=== PATIENT | female | born 1980 | race Caucasian/White ===

== ENCOUNTER → 2016-10-19 | Outpatient (CLI) | payer BC, OTHER ==
[~2016-10-19] MED LIST: DEPAKOTE PO; DEXILANT30 MG PO; FLEXERIL10 MG PO; JANUVIA25 MG PO; METFORMIN HCL1000 M2; NO MEDICATIONS; SEROQUEL PO; SYNTHROID PO; VOLTAREN75 MG PO; ZOCOR PO
--- NOTE | ~2016-10-19 | CR212 ---
[facility]. [facility] A Service of [facility] RADIOLOGY TEXT RESULTS PATIENT: MASOOD SALVADOR LOCATION: [facility] : [birth year] UNIT #: [id number] AGE: [address]: Desmond Vega MD SEX: F ORDER DR: [id number] [address] [address] [id number] O MR#: [id number] Acc #: [id number] NAME: MASOOD SALVADOR : 1980 SEX: F STUDY DATE/TIME: 10/19/2016 12:39 UNIT: [facility] ROOM: STUDY DESCRIPTION: CR Ribs Unilateral 2 View Lt Attending Physician: Desmond Vega M.D. Referring Physician: Desmond Vega M.D. Ordering Physician: Desmond Vega M.D. Primary Care Physician: Dale Covington M.D. MEDICAL IMAGING REPORT This report is preliminary unless electronic signature is present. EXAM Left rib series 10/19/2016 INDICATIONS 36-year-old female who has pain after fall last night, fell over a toy on the steps, hit the posterior ribs on the steps, bilateral rib pain. 4 views left ribs. COMPARISON STUDIES No comparisons. FINDINGS No acute rib fracture, pleural effusion or pneumothorax. Visualized osseous structures intact. Lungs clear. IMPRESSION Negative. Dictated by... Wilfredo Orozco M.D. THIS IS AN ELECTRONICALLY VERIFIED REPORT Wilfredo Orozco M.D. at 10/19/2016 7:17 PM Vic TD: 10/19/2016 17:55 JOB #: [id number] MEDICAL IMAGING REPORT Page 1 of 1
--- NOTE | ~2016-10-19 | CR213 ---
[facility]. [facility] A Service of [facility] & [facility] RADIOLOGY TEXT RESULTS PATIENT: MASOOD SALVADOR LOCATION: [facility] : 80 UNIT #: [id number] AGE: [address]: Desmond Vega MD SEX: F ORDER DR: [id number] [address] [address] [id number] O MR#: [id number] Acc #: [id number] NAME: MASOOD SALVADOR : 1980 SEX: F STUDY DATE/TIME: 10/19/2016 12:39 UNIT: [facility] ROOM: STUDY DESCRIPTION: CR Ribs Unilateral 2 View Rt Attending Physician: Desmond Vega M.D. Referring Physician: Desmond Vega M.D. Ordering Physician: Wilfredo Reina M.D. Primary Care Physician: Dale Covington M.D. MEDICAL IMAGING REPORT This report is preliminary unless electronic signature is present. EXAM Right rib series 10/19/2016 INDICATIONS Pain after fall last night, fell over a toy on the steps, hit the posterior ribs on the steps. Bilateral rib pain. 4 views right ribs. COMPARISON STUDIES No comparisons. FINDINGS No acute fracture. No pleural effusion. No pneumothorax. Lungs clear. IMPRESSION Negative. Dictated by... Wilfredo Orozco M.D. THIS IS AN ELECTRONICALLY VERIFIED REPORT Wilfredo Orozco M.D. at 10/27/2016 5:40 PM Vic TD: 10/19/2016 17:58 JOB #: [id number] MEDICAL IMAGING REPORT Page 1 of 1
== END | disposition home or self-care (01) ==
LOC: SRAD 12:25
DX: R07.81 Pleurodynia (principal); S20.219A Contusion of unspecified front wall of thorax, initial encounter
CPT/HCPCS: 71100

== ENCOUNTER 2017-02-28 13:28 | Emergency (ER) | payer OTHER ==
--- NOTE | ~2017-02-28 | EKG ---
PATIENT: MASOOD SALVADOR UNIT #: [id number] Ventricular Rate: 105 BPM Atrial Rate: 105 BPM P-R Interval: 130 ms QRS Duration: 78 ms Q-T Interval: 330 ms QTC Calculation(Bezet): 436 ms P Reinholds: 36 degrees Calculated R Reinholds: 43 degrees Calculated T Reinholds: 28 degrees Diagnosis Line: Sinus tachycardia Diagnosis Line: Otherwise normal ECG Diagnosis Line: When compared with ECG of 01-JAN-2014 14:28, Diagnosis Line: T wave amplitude has increased in Anterior leads Diagnosis Line: Confirmed by MELONIE COOPER MD ([id number]) on Diagnosis Line: 03/03/2017 10:41:11 AM INTERPRETING MD: ALLISON FINE
[~2017-02-28 13:28] MED LIST changes: -DEPAKOTE PO; -DEXILANT30 MG PO; -JANUVIA25 MG PO; -SEROQUEL PO
[2017-02-28] MEDS ORDERED: SEROQUEL PO (13:40)
[2017-02-28] MEDS ORDERED: DEPAKOTE PO (13:40)
[2017-02-28] MEDS ORDERED: DEXILANT30 MG PO (13:40)
[2017-02-28] MEDS ORDERED: JANUVIA25 MG PO (13:41)
== END 2017-02-28 15:30 | disposition home or self-care (01) ==
LOC: SED 13:28
DX: F41.9 Anxiety disorder, unspecified (principal); K21.9 Gastro-esophageal reflux disease without esophagitis; F31.9 Bipolar disorder, unspecified; Z91.040 Latex allergy status; Z79.899 Other long term (current) drug therapy
CPT/HCPCS: 93005; 99285

== ENCOUNTER → 2017-03-02 | Outpatient (CLI) | payer OTHER ==
[~2017-03-02] MED LIST changes: +DEPAKOTE PO; +DEXILANT30 MG PO; +JANUVIA25 MG PO; +SEROQUEL PO
--- NOTE | ~2017-03-02 | CR181 ---
[facility]. [facility] A Service of [facility] & [facility] RADIOLOGY TEXT RESULTS PATIENT: MASOOD SALVADOR LOCATION: [facility] : 80 UNIT #: [id number] AGE: [address]: Desmond Vega MD SEX: F ORDER DR: [id number] [address] [address] [id number] O MR#: [id number] Acc #: [id number] NAME: MASOOD SALVADOR : 1980 SEX: F STUDY DATE/TIME: 03/02/2017 13:44 UNIT: [facility] ROOM: STUDY DESCRIPTION: CR Lumbar Spine 2 or 3 Views Attending Physician: Desmond Vega M.D. Referring Physician: Desmond Vega M.D. Ordering Physician: Desmond Vega M.D. Primary Care Physician: Dale Covington M.D. MEDICAL IMAGING REPORT This report is preliminary unless electronic signature is present. EXAM Lumbar spine, 03/02/2017. HISTORY 36-year-old female with low back pain for 2 weeks. No specific injury. COMPARISON None FINDINGS Three views of the lumbar spine demonstrate no acute fracture or subluxation. Vertebral body heights and alignment are normal. Disc spaces and facets are within expected limits. Sacrum and SI joints intact. IMPRESSION Unremarkable lumbar spine. Dictated by... Joel Denise M.D. THIS IS AN ELECTRONICALLY VERIFIED REPORT Joel Denise M.D. at 03/03/2017 8:07 AM JULIA/elvira TD: 03/03/2017 00:21 JOB #: [id number] MEDICAL IMAGING REPORT Page 1 of 1
== END | disposition home or self-care (01) ==
LOC: SRAD 13:34
DX: M54.9 Dorsalgia, unspecified (principal)
CPT/HCPCS: 72100